=== PATIENT | male | born 2000 | race Caucasian/White ===

== ENCOUNTER 2019-05-04 18:54 | Emergency (ER) | payer SELFPAY ==
[~2019-05-04] VITALS: Ht 182.9 cm; Wt 99.0 kg
[2019-05-04] MEDS ORDERED: CEPHALEXIN 250MG CAPSULE PO ONE (19:30)
[2019-05-04] MEDS ORDERED: IBUPROFEN 800MG TABLET PO ONE (19:30)
[2019-05-04 20:24] VITALS: BP 131/68
== END 2019-05-04 20:38 | disposition left against medical advice (07) ==
LOC: ER 18:54
DX: M79.605 Pain in left leg (principal); Z98.890 Other specified postprocedural states
CPT/HCPCS: 73590; 99283